=== PATIENT | male | born 1970 | race Caucasian/White ===

== ENCOUNTER 2024-10-10 09:42 | Emergency (ER) | payer OTHER ==
[2024-10-10 10:19] LABS: #Basophils 0.04 10x3/uL (0.0-0.2); %Basophils 0.8 % (0.0-1.0); %Eosinophils 2.2 % (0.0-10.0); %Lymphocytes 40.2 % (21.0-51.0); %Monocytes 10.8 % (0.0-10.0); %Neutrophils 45.8 % (42.0-75.0); Hematocrit 43.7 % (42.0-52.0); Hemoglobin 15.5 g/dL (14.0-18.0); Mean Corpuscular HGB CONC 35.5 g/dL (32.0-36.0); Mean Corpuscular Hemoglobin 32.6 pg (27.0-31.0); Mean Corpuscular Volume 91.8 fL (78.0-98.0); Mean Platelet Volume 9.8 fL (7.4-10.4); Platelet Count 212 10x3/uL (130-400); RBC Distribution Width 13.6 % (11.5-14.5); Red Blood Cell (RBC) Count 4.76 mill/uL (4.70-6.10)
[2024-10-10 10:36] LABS: Anion Gap 13 mmol/L (10-20); BUN (Urea Nitrogen) 7 mg/dL (8.4-25.7); Calc. Creatinine Clearance 0 mL/min (70-130); Calcium 9.4 mg/dL (7.8-10.44); Carbon Dioxide 24 mmol/L (22-29); Chloride 107 mmol/L (98-107); Estimated GFR 104; Glucose 86 mg/dL (70-105); Potassium 4.1 mmol/L (3.5-5.1); Sodium 140 mmol/L (136-145)
[2024-10-10] MEDS ORDERED: Fioricet 325/50/40 mg Tablet ONE (11:28)
[2024-10-10 11:34] LABS: Troponin I Less than 0.010 ng/mL (< 0.028)
== END 2024-10-10 12:37 | disposition home or self-care (01) ==
LOC: ERS 09:42
DX: I10 Essential (primary) hypertension (principal); R51.9 Headache, unspecified; E78.00 Pure hypercholesterolemia, unspecified
CPT/HCPCS: 70450; 80048; 84484; 85025; 93005

== ENCOUNTER 2024-10-15 08:31 | Outpatient (CLI) | payer OTHER | END 2024-10-15 08:32 | disposition home or self-care (01) | LOC: ULT 08:31 | DX: I10 Essential (primary) hypertension (principal) | CPT/HCPCS: 93880 ==